=== PATIENT | male | born 1965 | race Caucasian/White ===

== ENCOUNTER 2016-10-28 08:51 | Observation (INO) | payer BC ==
[2016-10-28] VITALS (10 sets, daily range): BP systolic 115–175; BP diastolic 55–91; PULSE 62–78; RESP 18–25; TEMP 97.5–98.3; O2SAT 95–98
[~2016-10-28] VITALS: Ht 160 cm; Wt 84.0 kg
[~2016-10-28 08:51] MED LIST: ASPI81 CHEW; ATOR20TA42 PO; ZITH250T PO
[2016-10-28] MEDS ORDERED: LORazepam 1 MG TAB PO ONE (09:45)
[2016-10-28] MEDS ORDERED: SODIUM CHLORIDE 0.9% FLUSH 10 ML FLUSH IVF PRN (09:45)
--- NOTE | 2016-10-28 09:56 | RADRPT ---
EXAM DATE/TIME: 10/28/2016 09:37 [facility] COMPARISON: No previous studies available for comparison. INDICATIONS : Chest pain and light headed at work this morning. MEDICAL HISTORY : None. SURGICAL HISTORY : None. ENCOUNTER: Initial ACUITY: 1 day PAIN SCORE: 3/10 LOCATION: Bilateral chest FINDINGS: A single view of the chest demonstrates the lungs to be symmetrically aerated without evidence of mas s, infiltrate or effusion. The cardiomediastinal contours are unremarkable. Osseous structures are intact. CONCLUSION: No acute disease. Silver Curran MD on October 28, 2016 at 9:54 Board Certified Radiologist. This report was verified electronically.
[2016-10-28 10:00] LABS: AUTOMATED NEUTROPHIL # 3.6 TH/MM3 (1.8-7.7); BASOPHIL % 0.3 % (0.0-2.0); EOSINOPHIL # 0.3 TH/MM3 (0-0.4); EOSINOPHIL % 3.7 % (0.0-4.0); HEMATOCRIT 44.8 % (39.0-51.0); HEMO FLAGS DIFF FINAL; LYMPH % 35.9 % (9.0-44.0); LYMPHOCYTE # 2.6 TH/MM3 (1.0-4.8); MEAN CELL VOLUME 87.7 FL (80.0-100.0); MEAN CORPUSCULAR HEMOGLOBIN 29.7 PG (27.0-34.0); MEAN CORPUSCULAR HGB CONC 33.9 % (32.0-36.0); MONO % 9.3 % (0.0-8.0); NEUT % 50.8 % (16.0-70.0); PLATELET COUNT 187 TH/MM3 (150-450); RED BLOOD COUNT 5.11 MIL/MM3 (4.50-5.90); RED CELL DISTRIBUTION WIDTH 12.9 % (11.6-17.2); WHITE BLOOD COUNT 7.1 TH/MM3 (4.0-11.0)
[2016-10-28 10:06] LABS: INTERNATIONAL NORMALIZED RATIO 0.9 RATIO; PROTHROMBIN TIME - PATIENT 10.1 SEC (9.8-11.6)
[2016-10-28 10:18] LABS: CREATINE KINASE 357 U/L (39-308)
--- NOTE | 2016-10-28 10:21 | RADRPT ---
EXAM DATE/TIME: 10/28/2016 10:13 [facility] COMPARISON: CT BRAIN W/O CONTRAST, May 16, 2014, 3:11. INDICATIONS : Generalized weakness; history of stroke. RADIATION DOSE: 35.11 CTDIvol (mGy) MEDICAL HISTORY : Stroke. SURGICAL HISTORY : Nephrectomy, left. Hernia repair. ENCOUNTER: Initial ACUITY: 1 day PAIN SCALE: 3/10 LOCATION: cranial TECHNIQUE: Multiple contiguous axial images were obtained of the head. Using automated exposure control and adj ustment of the mA and/or kV according to patient size, radiation dose was kept as low as reasonably a chievable to obtain optimal diagnostic quality images. DICOM format image data is available electro nically for review and comparison. FINDINGS: CEREBRUM: The ventricles are normal for age. No evidence of midline shift, mass lesion, hemorrhage or acute in farction. No extra-axial fluid collections are seen. POSTERIOR FOSSA: The cerebellum and brainstem are intact. The 4th ventricle is midline. The cerebellopontine angle i s unremarkable. EXTRACRANIAL: The visualized portion of the orbits is intact. SKULL: The calvaria is intact. No evidence of skull fracture. CONCLUSION: Unremarkable CT brain. Silver Curran MD on October 28, 2016 at 10:19 Board Certified Radiologist. This report was verified electronically.
[2016-10-28 10:22] LABS: ANION GAP 8 MEQ/L (5-15); BICARBONATE 25.2 MEQ/L (21.0-32.0); BLOOD UREA NITROGEN 17 MG/DL (7-18); CHLORIDE 104 MEQ/L (98-107); GLOMERULAR FILTRATION RATE 61 ML/MIN (>89); POTASSIUM 4.3 MEQ/L (3.5-5.1); SODIUM (NA) 137 MEQ/L (136-145)
[2016-10-28 10:29] LABS: BLOOD, URINE NEG (NEG); GLUCOSE,URINE NEG (NEG); KETONE, URINE NEG (NEG); NITRITE,URINE NEG (NEG); URINE COLOR LIGHT-YELLOW (YELLW/STRAW)
[2016-10-28 10:30] LABS: COMMENT (UR) CATH-CULT NOT IND; CULTURE IF INDICATED CATH CULTURE NOT IND
[2016-10-28 10:31] LABS: CKMB 1.7 NG/ML (0.5-3.6)
--- NOTE | 2016-10-28 10:42 | PD ---
HPI Chief Complaint: Cardiac Complaint Time Seen by Provider: 09:34 Travel History International Travel<30 days: No Contact w/Intl Traveler<30days: No Traveled to known affect area: No History of Present Illness HPI 51-year-old male came to the emergency room brought by his family with history of feeling dizzy/lightheaded and just not right since 3 this morning. Patient says he went to bed at 11:00 and was feeling fine. At 3:00 he woke up and started feeling not himself and dizzy. He also noticed some palpitation and chest tightness. He eventually went to work but continued to feel the same and called his came and got him and brought him to the emergency room. Patient says that he felt exactly the same way 3 years ago when he was admitted for TIA. He had all kinds of workup and was discharged home to take aspirin every day. However after one year of taking he was asked to stop taking aspirin. No history of syncopal episode. He did feel like he was going to pass out however. He says his chest pain is like a squeezing sensation with no radiation of the pain. Vital signs were within acceptable limits. No aggravating or relieving factors identified. Patient seemed extremely anxious. As per his own admission he drinks 6-7 beers every day and he did last night as well although not as much. [facility] Past Medical History Narrative Medical List of his past medical, surgical, social and family history is reviewed from the nursing note. 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 MEMBER) Hepatitis: No Hiatal Hernia: Yes Immune Disorder: No Musculoskeletal: No Neurologic: No Psychiatric: No Reproductive: No Respiratory: No Immunizations Current: Yes Radiation Therapy: No Thyroid Disease: No Tetanus Vaccination: < 5 Years Past Surgical History Abdominal Surgery: Yes (HERNIA REPAIR THIS ADMIT) Cardiac Surgery: No Ear Surgery: No Endocrine Surgery: No Eye Surgery: No Genitourinary Surgery: Yes (LEFT NEPHRECTOMY) Gynecologic Surgery: Yes (VASECTOMY) Oral Surgery: Yes (WISDOM TEETH EXTRACTED) Pacemaker: No Thoracic Surgery: No Other Surgery: Yes (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 Reported Meds & Prescriptions Reported Meds & Active Scripts Active Narrative Medication List of his home medications reviewed from the nursing note. Review of Systems Except as stated in HPI: all other systems reviewed are Neg Physical Exam Narrative GENERAL: Awake, alert, anxious, moderate distress SKIN: Focused skin assessment warm/dry. HEAD: Atraumatic. Normocephalic. EYES: Pupils equal and round. No scleral icterus. No injection or drainage. ENT: No nasal bleeding or discharge. Mucous membranes pink and moist. NECK: Trachea midline. No JVD. CARDIOVASCULAR: Regular rate and rhythm. No murmur appreciated. RESPIRATORY: No accessory muscle use. Clear to auscultation. Breath sounds equal bilaterally. GASTROINTESTINAL: Abdomen soft, non-tender, nondistended. Hepatic and splenic margins not palpable. MUSCULOSKELETAL: No obvious deformities. No clubbing. No cyanosis. No edema. NEUROLOGICAL: Awake and alert. No obvious cranial nerve deficits. Motor grossly within normal limits. Normal speech. NIH stroke score of 0 PSYCHIATRIC: Appropriate mood and affect; insight and judgment normal. Data Data Last Documented VS Vital Signs Date Time Temp Pulse Resp B/P (MAP) Pulse Ox O2 Delivery O2 Flow Rate FiO2 10/28/16 09:41 98 Room Air 10/28/16 09:22 72 25 10/28/16 08:53 97.5 Orders Orders Electrocardiogram (10/28/16 09:34) Prothrombin Time / Inr (Pt) (10/28/16 09:34) Complete Blood Count With Diff (10/28/16 09:34) Basic Metabolic Panel (Bmp) (10/28/16 09:34) Creatine Kinase (Cpk) (10/28/16 09:34) Drug Screen, Random Urine (10/28/16 09:34) Troponin I (10/28/16 09:34) Urinalysis - C+S If Indicated (10/28/16 09:34) Ct Brain W/O Iv Contrast(Rout) (10/28/16 09:34) Chest, Single Ap (10/28/16 09:34) Ecg Monitoring (10/28/16 09:34) Iv Access Insert/Monitor (10/28/16 09:34) Oximetry (10/28/16 09:34) Sodium Chloride 0.9% Flush (Ns Flush) (10/28/16 09:45) Lorazepam (Ativan) (10/28/16 09:45) CKMB (10/28/16 09:04) CKMB% (10/28/16 09:04) Aspirin (Aspirin) (10/28/16 10:45) Sodium Chlor 0.9% 1000 Ml Inj (Ns 1000 M (10/28/16 10:45) Admit Order (Ed Use Only) (10/28/16 10:43) Labs Laboratory Tests Test 10/28/16 09:04 10/28/16 09:51 White Blood Count 7.1 TH/MM3 Red Blood Count 5.11 MIL/MM3 Hemoglobin 15.2 GM/DL Hematocrit 44.8 % Mean Corpuscular Volume 87.7 FL Mean Corpuscular Hemoglobin 29.7 PG Mean Corpuscular Hemoglobin Concent 33.9 % Red Cell Distribution Width 12.9 % Platelet Count 187 TH/MM3 Mean Platelet Volume 8.1 FL Neutrophils (%) (Auto) 50.8 % Lymphocytes (%) (Auto) 35.9 % Monocytes (%) (Auto) 9.3 % Eosinophils (%) (Auto) 3.7 % Basophils (%) (Auto) 0.3 % Neutrophils # (Auto) 3.6 TH/MM3 Lymphocytes # (Auto) 2.6 TH/MM3 Monocytes # (Auto) 0.7 TH/MM3 Eosinophils # (Auto) 0.3 TH/MM3 Basophils # (Auto) 0.0 TH/MM3 CBC Comment DIFF FINAL Differential Comment Prothrombin Time 10.1 SEC Prothromb Time International Ratio 0.9 RATIO Blood Urea Nitrogen 17 MG/DL Creatinine 1.26 MG/DL Random Glucose 91 MG/DL Calcium Level 8.7 MG/DL Sodium Level 137 MEQ/L Potassium Level 4.3 MEQ/L Chloride Level 104 MEQ/L Carbon Dioxide Level 25.2 MEQ/L Anion Gap 8 MEQ/L Estimat Glomerular Filtration Rate 61 ML/MIN Total Creatine Kinase 357 U/L Creatine Kinase MB 1.7 NG/ML Creatine Kinase MB % 0.5 % Troponin I LESS THAN 0.02 NG/ML Urine Color LIGHT-YELLOW Urine Turbidity CLEAR Urine pH 5.0 Urine Specific [place] 1.008 Urine Protein NEG mg/dL Urine Glucose (UA) NEG mg/dL Urine Ketones NEG mg/dL Urine Occult Blood NEG Urine Nitrite NEG Urine Bilirubin NEG Urine Urobilinogen LESS THAN 2.0 MG/DL Urine Leukocyte Esterase NEG Microscopic Urinalysis Comment CATH-CULT NOT IND Urine Opiates Screen NEG Urine Barbiturates Screen NEG Urine Amphetamines Screen NEG Urine Benzodiazepines Screen NEG Urine Cocaine Screen NEG Urine Cannabinoids Screen NEG MDM Medical Decision Making Medical Screen Exam Complete: Yes Emergency Medical Condition: Yes Medical Record Reviewed: Yes Interpretation(s) Twelve-lead EKG was reviewed by me. Normal sinus rhythm, left axis deviation, nonspecific ST-T wave changes. Heart rate of 62 bpm. Differential Diagnosis TIA, intracranial bleed, CVA, anxiety disorder Narrative Course 10:42 AM patient was given by mouth Ativan 1 mg for his anxiety. Workup so far is negative. I've given him one dose of aspirin. I explained to the patient that I would like to admit him for at least observation with further workup in the form of MRI and carotid ultrasound can be done. He is agreeable to that. I spoke with the hospitalist who has accepted the case. Procedures EKG Prior to Arrival: No Diagnosis Primary Impression: TIA (transient ischemic attack) Qualified Codes: G45.9 - Transient cerebral ischemic attack, unspecified Additional Impression: Anxiety Admitting Information Admitting Physician Requests: Observation Scripts Nitroglycerin SL (Nitroglycerin SL) 0.3 Mg Subl 0.3 MG SL DIRECTED Y for CHEST PAIN, #100 TAB.SL 0 Refills ONE TABLET UNDER THE TONGUE NEEDED FOR CHEST PAIN, MAY REPEAT EVERY FIVE MINUTES FOR A TOTAL OF 3 DOSES OR CALL 911 IF NO RELIEF Prov: Marian Harding MD 10/29/16 Aspirin (Aspirin) 325 Mg Tab 325 MG PO DAILY for blood thinner MDD 325 for 30 Days, #30 TAB 0 Refills Prov: Marian Harding MD 10/29/16 Manolo Aparicio MD Oct 28, 2016 10:42
[2016-10-28] MEDS ORDERED: SODIUM CHLOR 0.9% 1000 ML INJ 1,000 ML IV ONE (10:45)
[2016-10-28] MEDS ORDERED: ASPIRIN 325 MG TAB PO ONE ×2 (10:45→13:00)
--- NOTE | 2016-10-28 12:06 | EKG ---
Date Performed: 10/28/2016 Time Performed: 09:14:11 PTAGE: 51 years EKG: Sinus rhythm NORMAL ECG NO PREVIOUS TRACING DOCTOR: Severo Kelly Interpretating Date/Time 10/28/2016 12:04:41
[2016-10-28] MEDS: SODIUM CHLOR 0.9% 1000 ML INJ 1,000 ML IV SCH (12:52)
[2016-10-28] MEDS ORDERED: THIAMINE HCL 100 MG TAB PO ONE (13:00)
[2016-10-28] MEDS ORDERED: FOLIC ACID 1 MG TAB PO ONE (13:00)
--- NOTE | 2016-10-28 14:19 | RADRPT ---
EXAM DATE/TIME: 10/28/2016 13:45 [facility] COMPARISON: No previous studies available for comparison. INDICATIONS : TIA. MEDICAL HISTORY : Afib. SURGICAL HISTORY : Inguinal hernia repair. Kidney. ENCOUNTER: Initial ACUITY: 1 day PAIN SCORE: 3/10 LOCATION: head TECHNIQUE: Multiplanar, multisequence MRI of the brain was performed without contrast. FINDINGS: CEREBRUM: The ventricles are normal for age. No evidence of midline shift, mass lesion, hemorrhage or acute in farction. No extraaxial fluid collections are seen. The pituitary gland and suprasellar cistern are normal in configuration. WHITE MATTER: No significant signal abnormalities are seen in the white matter. POSTERIOR FOSSA: The cerebellum and brainstem are intact. The 4th ventricle is midline. The cerebellopontine angle is unremarkable. The cerebellar tonsils are normal in position. DIFFUSION IMAGING: No focal areas of restricted diffusion are seen. No evidence of acute infarction. EXTRACRANIAL: The visualized portions of the orbits and paranasal sinuses are unremarkable. CONCLUSION: 1. Unremarkable MRI examination the brain. Specifically, no evidence for acute ischemia. Jose Elias Savage MD on October 28, 2016 at 14:13 Board Certified Radiologist. This report was verified electronically.
--- NOTE | 2016-10-28 17:02 | RADRPT ---
EXAM DATE/TIME: 10/28/2016 16:12 [facility] COMPARISON: No previous studies available for comparison. INDICATIONS : Transischemic attack. MEDICAL HISTORY : Atrial fibrillation. Cerebrovascular accident. SURGICAL HISTORY : Hiatel hernia. Nephrectomy. ENCOUNTER: Initial ACUITY: 1 day PAIN SCORE: 0/10 LOCATION: Bilateral neck PEAK SYSTOLIC VELOCITIES (cm/sec): ICA/CCA RATIO: Right: 0.9 Left: 0.8 ICA: Right: 76.6 Left: 72.3 CCA: Right: 81.4 Left: 90.6 ECA: Right: 79.0 Left: 76.6 VERTEBRAL: Right: 37.4 antegrade Left: 32.2 antegrade Elevated flow velocities and ICA/CCA ratios have been found to correlate with increased degrees of vessel stenosis, calculated as percentage of diameter relative to a normal segment of distal ICA/CCA FINDINGS: RIGHT CAROTID: No significant stenosis is visualized. Minimal plaque. The waveforms are within normal limits. LEFT CAROTID: No significant stenosis is visualized. Minimal plaque. The waveforms are within normal limits. VERTEBRAL ARTERIES: Antegrade flow is seen in both vertebral arteries. MISCELLANEOUS: None. CONCLUSION: No hemodynamically significant stenosis in either carotid artery. Silver Curran MD on October 28, 2016 at 16:59 Board Certified Radiologist. This report was verified electronically.
--- NOTE | 2016-10-28 18:54 | HHI.PR ---
Objective Objective Results - Vital Signs Date Time Temp Pulse Resp B/P (MAP) Pulse Ox O2 Delivery O2 Flow Rate FiO2 10/28/16 16:22 98.3 65 19 143/87 (105) 97 10/28/16 15:34 10/28/16 12:52 62 21 115/55 (75) 97 Room Air 10/28/16 09:41 98 Room Air 10/28/16 09:22 72 25 144/85 (104) 10/28/16 09:20 66 22 142/85 (104) 10/28/16 09:19 64 20 147/91 (109) 10/28/16 09:18 62 18 147/91 (109) 97 Room Air 10/28/16 09:14 18 10/28/16 08:53 97.5 78 20 175/90 (118) 98 Room Air Result Diagram: 10/28/16 0904 10/28/16 0904 Other Results Laboratory Tests Test 10/28/16 09:04 10/28/16 09:51 White Blood Count 7.1 Red Blood Count 5.11 Hemoglobin 15.2 Hematocrit 44.8 Mean Corpuscular Volume 87.7 Mean Corpuscular Hemoglobin 29.7 Mean Corpuscular Hemoglobin Concent 33.9 Red Cell Distribution Width 12.9 Platelet Count 187 Mean Platelet Volume 8.1 Neutrophils (%) (Auto) 50.8 Lymphocytes (%) (Auto) 35.9 Monocytes (%) (Auto) 9.3 Eosinophils (%) (Auto) 3.7 Basophils (%) (Auto) 0.3 Neutrophils # (Auto) 3.6 Lymphocytes # (Auto) 2.6 Monocytes # (Auto) 0.7 Eosinophils # (Auto) 0.3 Basophils # (Auto) 0.0 CBC Comment DIFF FINAL Differential Comment Prothrombin Time 10.1 Prothromb Time International Ratio 0.9 Blood Urea Nitrogen 17 Creatinine 1.26 Random Glucose 91 Calcium Level 8.7 Sodium Level 137 Potassium Level 4.3 Chloride Level 104 Carbon Dioxide Level 25.2 Anion Gap 8 Estimat Glomerular Filtration Rate 61 Total Creatine Kinase 357 Creatine Kinase MB 1.7 Creatine Kinase MB % 0.5 Troponin I LESS THAN 0.02 Urine Color LIGHT-YELLOW Urine Turbidity CLEAR Urine pH 5.0 Urine Specific [place] 1.008 Urine Protein NEG Urine Glucose (UA) NEG Urine Ketones NEG Urine Occult Blood NEG Urine Nitrite NEG Urine Bilirubin NEG Urine Urobilinogen LESS THAN 2.0 Urine Leukocyte Esterase NEG Microscopic Urinalysis Comment CATH-CULT NOT IND Urine Opiates Screen NEG Urine Barbiturates Screen NEG Urine Amphetamines Screen NEG Urine Benzodiazepines Screen NEG Urine Cocaine Screen NEG Urine Cannabinoids Screen NEG Physical Exam Physical Exam pt is seen & examined d/w pt d/w evon see H&P see orders will f/u Marian Harding MD Oct 28, 2016 18:54
[2016-10-28] MEDS ORDERED: FAMOTIDINE 20 MG TAB PO SCH (21:00)
[2016-10-29] VITALS (10 sets, daily range): BP systolic 128–140; BP diastolic 69–90; PULSE 54–70; RESP 17–18; TEMP 97.1–98.5; O2SAT 97
[2016-10-29] MEDS: SODIUM CHLOR 0.9% 1000 ML INJ 1,000 ML IV SCH (00:25)
--- NOTE | 2016-10-29 08:26 | MH ---
cc: MARIAN HARDING MD DATE OF ADMISSION 10/28/2016 DATE OF 1965 CHIEF COMPLAINT Dizziness, lightheadedness, chest tightness. Travel in the last 30 days, none. HISTORY OF PRESENT ILLNESS This is a pleasant 51-year-old white male who got up this morning at practically 0300 and felt dizzy and lightheaded. The patient states that he felt like he was breathing heavy and he did have some mild chest tightness. He laid down and went back to sleep but he states when he woke up he had the same type of symptoms. He did go on to work but states that he still had a lightheaded, dizzy sensation and has had a headache ever since 0300 this morning. The patient had these same type symptoms approximately 2 years ago, was initially diagnosed with a TIA. He also had some atrial fibrillation and was seen by cardiology. The patient states he has had two different stress tests which have been negative. He followed cardiology for approximately 6 months. When standing up straight the patient still has a presyncope feeling. Pulse rate seems to be regular. He does appear to be mildly anxious. is at his side. He denies any nausea, vomiting, no fever, no cough. He has no problems voiding and he had a bowel movement this morning. PAST MEDICAL HISTORY 1. Skin cancer. 2. Atrial fibrillation. 3. TIA. 4. Daily alcohol usage. 5. Hiatal hernia. 6. Presyncope. PAST SURGICAL HISTORY 1. Hernia repair. 2. Left nephrectomy. 3. Vascectomy. 4. [place] teeth extraction. ALLERGIES PENICILLIN. MEDICATIONS Not listed. SOCIAL HISTORY The patient is , currently lives with his . He denies any tobacco or illicit drug use but he has does drink multiple beers on a daily basis since his teenage years. REVIEW OF SYSTEMS A 14 point review was obtained. Positives noted which were partially listed in HPI which include some chest tightness, drowsiness, lightheadedness, some shortness of breath with the chest tightness, headache since 0300, presyncope feeling, some erratic heart rate between the 60s and the 90s and with activity. Any other systems I mentioned, other systems negative or unremarkable. PHYSICAL EXAMINATION VITAL SIGNS: Temperature is 97.5, pulse 62-72 since admission. Respiratory rate between 18-25, now 21. Blood pressure 116/55, has been as high as 147/91. O2 saturation 97% currently on room air. GENERAL: Well-nourished, well-developed, mildly obese for his height white male. Looks to be stated age. He is a good historian. He is alert and oriented and cooperative. SKIN: [place] warm and dry. HEENT: Atraumatic, normocephalic. Pupils equal, round, reactive to light and accommodation at 3. Mucous membranes are pink and moist. NECK: Supple. Throat and tongue are is clear. CARDIOVASCULAR: S1-S2. Rhythm is regular. No obvious murmurs, rubs, or gallops. LUNGS: Are essentially clear anteriorly and posteriorly with no wheezes, rhonchi or rales. ABDOMEN: Round, soft, nontender, nondistended. MUSCULOSKELETAL: No obvious deformities. No clubbing. His hand refrigerator repair technician. He has no edema. Extremities are warm. NEUROLOGIC: He is awake, alert, good historian. Has equal hand music mixer. Moves all of his extremities with purpose. PSYCHIATRIC: Mood and affect are appropriate with some mild anxiety. Insight and judgment are normal. LABORATORY DATA Diagnostic data, white blood cell count 7.1, RBC 3.11, hemoglobin 15.2, hematocrit 44.8. Platelet count 187. On his dif abnormal monocyte percentage 9.3. PT INR 0.9. Chemistries, sodium 137, potassium 4.3, chloride 104, BUN 17, creatinine 1.26. GFR 61. Glucose is 91. Total creatine kinase 357 with a CKMB 1.7. First troponin is less than 0.02. Urine is negative. No culture needed. Toxicity negative for opiates, barbiturates, amphetamines, benzodiazepines, cocaine and cannabis. IMAGING A chest x-ray lungs aerated without mass, infiltrates or effusion. Head CT scan unremarkable CT scan. Brain MRI unremarkable. No evidence of acute ischemia. ASSESSMENT AND PLAN 1. Possible transient ischemic attack rule out cerebrovascular accident. 2. Chest pressure with shortness of breath rule out cardiac event. 3. History of atrial fibrillation rule out any dysrhythmia. 4. Anxiety disorder. 5. Daily ethyl alcohol usage. 6. Lightheadedness, near syncope. Our plan is to admit, observation. We will monitor continuous ECG monitoring and/or telemetry. Rule out with serial troponin levels. The patient will be started on folic acid and thiamine. Ultrasound of the carotids. MRI of the brain without contrast. Proton pump inhibitor with Pepcid. We will give him aspirin daily. It was also given in the emergency room setting. He can be out of bed with assistance. Heart healthy diet. 2-D echocardiogram with Doppler. After this evaluation it will be decided whether he needs any consulting physicians or any followups that need to be done based on any findings. The patient is full code, full aggressive care. Dictated by: REUBEN Rod Marian Harding MD MNA/KK /3:18 PM /8:24 AM pt is seen & examined d/w pt d/w evon see H&P see orders will f/u Marian Harding MD Oct 28, 2016 18:54 MTDD
--- NOTE | 2016-10-29 08:46 | HHI.PR ---
Subjective Subjective Remarks Chest tightness and dizziness yesterday, none at this time Complaining of a headache, between a 6 and a 7 No nausea, no vomiting Gas Inspector is Dr. Collins, had a stress test in 2015 that was negative Has not been up to ambulate Telemetry reviewed, sinus rhythm, sinus bradycardia Review of Systems Constitutional Constitutional Remarks 12 point review of systems completed, negative except as noted above Vitals/Results Vital Signs Vital Signs Date Time Temp Pulse Resp B/P (MAP) Pulse Ox O2 Delivery O2 Flow Rate FiO2 10/29/16 04:00 54 10/29/16 03:22 97.6 65 17 128/78 (95) 97 10/29/16 00:24 97.1 68 17 137/69 (91) 97 10/29/16 00:00 56 10/28/16 21:13 98.1 68 18 147/82 (103) 95 10/28/16 20:00 64 10/28/16 16:22 98.3 65 19 143/87 (105) 97 10/28/16 15:34 10/28/16 12:52 62 21 115/55 (75) 97 Room Air 10/28/16 09:41 98 Room Air 10/28/16 09:22 72 25 144/85 (104) 10/28/16 09:20 66 22 142/85 (104) 10/28/16 09:19 64 20 147/91 (109) 10/28/16 09:18 62 18 147/91 (109) 97 Room Air 10/28/16 09:14 18 10/28/16 08:53 97.5 78 20 175/90 (118) 98 Room Air CBC/BMP: 10/28/16 0904 10/28/16 0904 Lab Results Laboratory Tests Test 10/28/16 09:04 10/28/16 09:51 White Blood Count 7.1 TH/MM3 Red Blood Count 5.11 MIL/MM3 Hemoglobin 15.2 GM/DL Hematocrit 44.8 % Mean Corpuscular Volume 87.7 FL Mean Corpuscular Hemoglobin 29.7 PG Mean Corpuscular Hemoglobin Concent 33.9 % Red Cell Distribution Width 12.9 % Platelet Count 187 TH/MM3 Mean Platelet Volume 8.1 FL Neutrophils (%) (Auto) 50.8 % Lymphocytes (%) (Auto) 35.9 % Monocytes (%) (Auto) 9.3 % Eosinophils (%) (Auto) 3.7 % Basophils (%) (Auto) 0.3 % Neutrophils # (Auto) 3.6 TH/MM3 Lymphocytes # (Auto) 2.6 TH/MM3 Monocytes # (Auto) 0.7 TH/MM3 Eosinophils # (Auto) 0.3 TH/MM3 Basophils # (Auto) 0.0 TH/MM3 CBC Comment DIFF FINAL Differential Comment Prothrombin Time 10.1 SEC Prothromb Time International Ratio 0.9 RATIO Blood Urea Nitrogen 17 MG/DL Creatinine 1.26 MG/DL Random Glucose 91 MG/DL Calcium Level 8.7 MG/DL Sodium Level 137 MEQ/L Potassium Level 4.3 MEQ/L Chloride Level 104 MEQ/L Carbon Dioxide Level 25.2 MEQ/L Anion Gap 8 MEQ/L Estimat Glomerular Filtration Rate 61 ML/MIN Total Creatine Kinase 357 U/L Creatine Kinase MB 1.7 NG/ML Creatine Kinase MB % 0.5 % Troponin I LESS THAN 0.02 NG/ML Urine Color LIGHT-YELLOW Urine Turbidity CLEAR Urine pH 5.0 Urine Specific Richardson 1.008 Urine Protein NEG mg/dL Urine Glucose (UA) NEG mg/dL Urine Ketones NEG mg/dL Urine Occult Blood NEG Urine Nitrite NEG Urine Bilirubin NEG Urine Urobilinogen LESS THAN 2.0 MG/DL Urine Leukocyte Esterase NEG Microscopic Urinalysis Comment CATH-CULT NOT IND Urine Opiates Screen NEG Urine Barbiturates Screen NEG Urine Amphetamines Screen NEG Urine Benzodiazepines Screen NEG Urine Cocaine Screen NEG Urine Cannabinoids Screen NEG Physical Exam General General Appearance: Well Developed, Well Nourished, No Acute Distress, Comfortable Eyes Eye Exam: Pupils Equal, Pupils Reactive Ears & Nose Ears & Nose Exam: Nasal Mucosa [place] Throat Throat Exam: Oral Mucosa [place] & Moist Neck Neck Exam: Neck Supple, Trachea Midline Pulmonary Resp Exam: Clear Bilaterally, No Distress Cardiology CV Exam: Regular, Good Perfusion Gastrointestinal/Abdomen GI Exam: Soft, Non-Tender, Bowel Sounds Present, Non-Distended Musculoskeletal MS Exam: Joints Intact Integumentary Skin Exam: Warm, Dry Extremeties Extremities Exam: No Edema, Pedal Pulses Palpable Neurologic Neuro Exam: Alert, Awake, Oriented, Speech Clear, Moving All Extremities, No Focal Deficits Psychiatric Psych Exam: Appropriate Responses VTE Prophylaxis VTE Prophylaxis Device: SCDs PUD Prophylasis PUD Remarks Pepcid Assessment/Plan Problem List: (1) Chest pain ICD Codes: R07.9 - Chest pain, unspecified Status: Acute (2) Dizziness ICD Codes: R42 - Dizziness and giddiness Status: Acute (3) Anxiety ICD Codes: F41.9 - Anxiety disorder, unspecified Status: Acute (4) EtOH dependence ICD Codes: F10.20 - Alcohol dependence, uncomplicated Status: Chronic Assessment/Plan 51-year-old male admitted with chest tightness and dizziness, now resolving Troponin 1 negative EKG did not reveal any acute findings We'll consult cardiology for evaluation Continue with aspirin We will check lipid profile in the morning Dizziness, now resolving Out of bed with assistance Physical therapy for evaluation Daily alcohol use EtOH counseling done Continue with folic acid and thiamine Librium when necessary Complaining of headache Tylenol as needed We will follow up on recommendations of cardiology, if stable possible discharge later this afternoon Discussed with patient and Discussed with RN Discussed with Dr. Harding This patient was seen by myself and Dr. Harding, this note is written on his behalf Problem Qualifiers (1) Chest pain: Qualified Codes: R07.9 - Chest pain, unspecified (2) EtOH dependence: Qualified Codes: F10.20 - Alcohol dependence, uncomplicated Celina Gracia Oct 29, 2016 08:46
[2016-10-29] MEDS ORDERED: THIAMINE HCL 100 MG TAB PO SCH (09:00)
[2016-10-29] MEDS ORDERED: ASPIRIN 325 MG TAB PO SCH (09:00)
[2016-10-29] MEDS ORDERED: FOLIC ACID 1 MG TAB PO SCH (09:00)
[2016-10-29] MEDS: ACETAMINOPHEN 325 MG TAB PO PRN ×2 (09:11→14:02)
--- NOTE | 2016-10-29 13:18 | MB ---
cc: RABIA NEGRETE MD DATE OF CONSULTATION 10/29/2016 REASON FOR CONSULTATION Dizziness and chest pain. HISTORY OF PRESENT ILLNESS Mr. Perry is a 51-year-old patient of my partner, Dr. Gonzalez. He does have a history of chest pain and prior TIA. He did undergo workup for this in 2014 which at that time showed a normal Holter monitor. No atrial fibrillation has been documented on this gentleman. The patient reports over the last two years he has had a couple episodes of palpitations but none severe until yesterday. He reports after getting up to go to work his heart rate would jump up to 130 and then drop back down to about 90. These episodes were relatively short-lived but were also associated with chest discomfort. He reports that this is the same as he had prior to his TIA. The patient reports that he subsequently became dizzy and has had dizziness since. There does not appear to be any precipitating or relieving factor to his dizziness at this time. As well, the chest discomfort was yesterday and lasted a couple hours. There was no precipitating or relieving factors. He is currently pain-free. PAST MEDICAL HISTORY 1. Hiatal hernia. 2. TIA. 3. Daily alcohol use. He does not have a documented history of atrial fibrillation. PAST SURGICAL HISTORY 1. Hernia repair. 2. Left nephrectomy. 3. Vasectomy. ALLERGIES PENICILLIN. MEDICATIONS None. SOCIAL HISTORY The patient is currently . He does not smoke but does have alcohol daily. FAMILY HISTORY Non-contributory. PHYSICAL EXAMINATION VITAL SIGNS: 98.0, 70, 18, 138/90. GENERAL: He is an overweight man who is in no apparent distress. NECK: Free from JVD. LUNGS: Bilaterally clear to auscultation. CARDIOVASCULAR EXAMINATION: He has a normal S1 and S1. I did not appreciate any murmurs, rubs, or gallops. ABDOMEN: Soft. EXTREMITIES: Free from edema. EKG The EKG shows sinus bradycardia. There is an inverted T-wave in Lead III which is unchanged from his prior ECG. LAB VALUES Significant for a troponin of less than 0.02 and a creatinine of 1.26. IMPRESSIONS Chest pain - The patient does have a history of atypical chest pain in a similar scenario from two years ago. His stress test at that time was normal. His cardiac enzymes and EKG are negative. At this point I would like to check at least one other set. This is reasonable as his chest pain was yesterday and does appear to be related to some type of tachyarrhythmia. Nonetheless, I would like to pursue further evaluation with stress testing. The patient has requested this as an outpatient which is reasonable, provided the next troponin is negative. Dizziness - The patient does have ongoing dizziness and gait disturbance. There is no overt cardiac etiology at this time. Palpitations - The patient has had rather infrequent episodes of what he describes as tachycardia and potentially consistent with atrial fibrillation. Considering his history of TIA and negative workup in the past, a loop recorder will be considered, also as an outpatient. His ongoing dizziness is not, however, explained by a cardiac etiology. DISPOSITION It is reasonable for him to be discharged from a cardiac perspective with close followup. Rabia Negrete M.D. BEATRIS/SSB /12:53 PM /1:01 PM
--- NOTE | 2016-10-29 13:40 | EKG ---
Date Performed: 10/28/2016 Time Performed: 19:46:16 PTAGE: 51 years EKG: SINUS BRADYCARDIA BORDERLINE ECG Compared to prior tracing no significant change PREVIOUS TRACING : 10/28/2016 09.14 DOCTOR: Donna Hart Interpretating Date/Time 10/29/2016 13:37:57
[2016-10-29] MEDS ORDERED: NITR1SUB2 SL (14:09)
[2016-10-29] MEDS ORDERED: ASPI325T PO (14:09)
--- NOTE | 2016-10-29 14:52 | ECHRPT ---
Indication: cva/tia CONCLUSIONS Normal left ventricular size. Wall thickness is measured at the upper limits of normal. Mild mitral valve regurgitation. There is mild tricuspid valve regurgitation. The pulmonary valve is not well visualized. BP: / HR: Rhythm: MEASUREMENTS (Male / Female) Normal Values Technical Quality:Good 2D ECHO LV Diastolic Diameter PLAX 5.0 cm 4.2 - 5.9 / 3.9 - 5.3 cm LV Systolic Diameter PLAX 3.6 cm IVS Diastolic Thickness 1.1 cm 0.6 - 1.0 / 0.6 - 0.9 cm LVPW Diastolic Thickness 0.9 cm 0.6 - 1.0 / 0.6 - 0.9 cm LV Relative Wall Thickness 0.4 RV Internal Dim ED PLAX 3.0 cm M-MODE Aortic Root Diameter MM 3.1 cm LA Systolic Diameter MM 4.0 cm LA Ao Ratio MM 1.3 AV Cusp Separation MM 2.1 cm DOPPLER Mitral E Point Velocity 77.0 cm/s Mitral A Point Velocity 62.7 cm/s Mitral E to A Ratio 1.2 LV E' Lateral Velocity 14.1 cm/s Mitral E to LV E' Lateral Ratio 5.5 LV E' Septal Velocity 11.1 cm/s Mitral E to LV E' Septal Ratio 6.9 TR Peak Velocity 285.0 cm/s TR Peak Gradient 32.5 mmHg FINDINGS LEFT VENTRICLE The left ventricular systolic function is normal with an estimated ejection fraction in the range of 60-65%. Normal left ventricular size. Wall thickness is measured at the upper limits of normal. RIGHT VENTRICLE Normal right ventricular size and systolic function. LEFT ATRIUM The left atrial size is normal. RIGHT ATRIUM The right atrial size is normal. ATRIAL SEPTUM Normal atrial septal thickness without atrial level shunting by limited color doppler interrogation. AORTA The aortic root and proximal ascending aorta are normal in size on limited imaging. MITRAL VALVE Mild mitral valve regurgitation. AORTIC VALVE Trileaflet aortic valve. No aortic valve stenosis or regurgitation. TRICUSPID VALVE Structurally normal tricuspid valve. There is mild tricuspid valve regurgitation. PULMONARY VALVE The pulmonary valve is not well visualized. VESSELS The inferior vena cava is normal in size. PERICARDIUM No pericardial effusion. Cayla Negrete MD, FACC (Electronically Signed) Final Date:29 October 2016 14:50
--- NOTE | 2016-10-29 16:14 | HHI.DCPOC ---
Discharge Care Plan Diagnosis: (1) Anxiety (2) Dizziness (3) Chest pain (4) EtOH dependence Your Health Problems Are: Chest Pain Goals to Promote Your Health * To prevent worsening of your condition and complications * To maintain your health at the optimal level Directions to Meet Your Goals Take your medications as prescribed Follow your dietary instruction Follow activity as directed Keep your appointments as scheduled Take your immunizations and boosters as scheduled If your symptoms worsen call your PCP, if no PCP go to Urgent Care Center or Emergency Room Smoking is Dangerous to Your Health. Avoid second hand smoke Call the 24-hour hour crisis hotline for domestic abuse at Celina Gracia. [facility] Oct 29, 2016 16:14
== END 2016-10-29 18:58 | disposition home or self-care (01) ==
LOC: NEPC 08:51 → NEDA 10:44 → NEPGCP 15:19
PROVIDERS: ADMIT Specialist; ATTEND Specialist
DX: F41.9 Anxiety disorder, unspecified (principal); R42 Dizziness and giddiness; R07.89 Other chest pain; F10.20 Alcohol dependence, uncomplicated; I48.91 Unspecified atrial fibrillation; Z79.82 Long term (current) use of aspirin; Z86.73 Personal history of transient ischemic attack (TIA), and cerebral infarction without residual deficits; Z85.828 Personal history of other malignant neoplasm of skin
CPT/HCPCS: 70450; 70551; 71010; 80048; 80307; 81001; 82550; 82552; 84484; 85025; 85610; 93005; 93306; 93880; 97163; 99285; G0378; G8987; G8988; J7030